=== PATIENT | female | born 1950 | race Caucasian/White ===

== ENCOUNTER 2016-03-18 15:05 | Emergency (ER) | payer MEDICARE, BC ==
[2016-03-18 15:34] VITALS: RESP 20
[2016-03-18] MEDS ORDERED: IBUPROFEN 600 MG TAB PO ONE (16:58)
[2016-03-18] MEDS ORDERED: IBUPROFEN 600 MG TAB ONE (17:02)
[2016-03-18 18:33] VITALS: BP 160/83; PULSE 62; TEMP 98; O2SAT 99
== END 2016-03-18 18:06 | disposition home or self-care (01) | DRG 914 ==
LOC: ED 15:05
DX: S89.92XA Unspecified injury of left lower leg, initial encounter (principal); W64.XXXA Exposure to other animate mechanical forces, initial encounter
CPT/HCPCS: 73562; 73590; 99284

== ENCOUNTER 2016-04-02 12:27 | Outpatient (CLI) | payer MEDICARE, BC ==
[2016-03-18 18:33] VITALS: O2SAT 99
[~2016-04-02 12:27] MED LIST: HEPARIN 500 Unit PRE-FILL 100 U/ML SOL IV PRN
[2016-04-02] MEDS ORDERED: HEPARIN 500 Unit PRE-FILL 100 U/ML SOL IV ONE (12:51)
[2016-04-02] MEDS: SODIUM CHLORIDE 0.9% FLUSH 10 ML SOL IV PRN ×2 (13:30→13:31)
== END 2016-04-02 12:28 | disposition home or self-care (01) | DRG 951 ==
LOC: CONVCARE 12:27
PROVIDERS: ATTEND Orthopaedic Surgery
DX: Z43.8 Encounter for attention to other artificial openings (principal)
CPT/HCPCS: 99211; J1644

== ENCOUNTER 2016-04-24 09:02 | Outpatient (CLI) | payer MEDICARE, BC ==
[2016-03-18 18:33] VITALS: O2SAT 99
== END 2016-04-24 09:03 | disposition home or self-care (01) | DRG 561 ==
LOC: CONVCARE 09:02
PROVIDERS: ATTEND Orthopaedic Surgery
DX: S82.145D Nondisplaced bicondylar fracture of left tibia, subsequent encounter for closed fracture with routine healing (principal); R22.42 Localized swelling, mass and lump, left lower limb
CPT/HCPCS: 73560

== ENCOUNTER 2016-05-21 08:00 | Outpatient (CLI) | payer MEDICARE, BC ==
[2016-05-04 11:45] VITALS: O2SAT 97
== END 2016-05-21 08:01 | disposition home or self-care (01) | DRG 561 ==
LOC: CONVCARE 08:00
PROVIDERS: ATTEND Orthopaedic Surgery
DX: S82.142D Displaced bicondylar fracture of left tibia, subsequent encounter for closed fracture with routine healing (principal)
CPT/HCPCS: 73560

== ENCOUNTER 2016-06-18 10:47 | Outpatient (CLI) | payer MEDICARE, BC ==
[2016-05-04 11:45] VITALS: O2SAT 97
== END 2016-06-18 10:48 | disposition home or self-care (01) | DRG 561 ==
LOC: CONVCARE 10:47
PROVIDERS: ATTEND Orthopaedic Surgery
DX: S82.145D Nondisplaced bicondylar fracture of left tibia, subsequent encounter for closed fracture with routine healing (principal)
CPT/HCPCS: 73560